=== PATIENT | male | born 1980 | race Caucasian/White ===

== ENCOUNTER 2020-09-03 11:14 | Emergency (ER) | payer OTHER ==
[2020-09-03 14:16] LABS: BUN/CREATININE RATIO 10 (0-10)
== END 2020-09-03 15:24 | disposition home or self-care (01) ==
LOC: ER1 11:14
PROVIDERS: Emergency Medicine
DX: S93.402A Sprain of unspecified ligament of left ankle, initial encounter (principal); S13.4XXA Sprain of ligaments of cervical spine, initial encounter; I10 Essential (primary) hypertension; V49.40XA Driver injured in collision with unspecified motor vehicles in traffic accident, initial encounter
CPT/HCPCS: 72125; 73610; 80048; 99284; Q9967

== ENCOUNTER → 2020-10-20 | Outpatient (CLI) | payer OTHER | LOC: EMI 10-13 08:00 | DX: M25.572 Pain in left ankle and joints of left foot (principal); V89.2XXA Person injured in unspecified motor-vehicle accident, traffic, initial encounter | CPT/HCPCS: 73721 ==